=== PATIENT | male | born 1945 | race Caucasian/White ===

== ENCOUNTER 2020-10-06 15:24 | Inpatient (IN) | payer MEDICARE, OTHER ==
[~2020-10-06] VITALS: Ht 172.7 cm; Wt 112.7 kg
[2020-10-06] MEDS ORDERED: GOOD SENSE ASP325 MG PO (15:51)
[2020-10-06] MEDS ORDERED: LIPITOR20 MG PO (15:52)
[2020-10-06] MEDS ORDERED: CELEXA20 MG PO (15:53)
[2020-10-06] MEDS ORDERED: CLOPIDOGREL75 MG PO (15:55)
[2020-10-06] MEDS ORDERED: Imdur SA60 MG PO (15:58)
[2020-10-06] MEDS ORDERED: LASIX20 MG PO (15:59)
[2020-10-06] MEDS ORDERED: LEVOTHYROXINE175 MCG PO (16:00)
[2020-10-06] MEDS ORDERED: SINGULAIR10 M1 PO (16:02)
[2020-10-06] MEDS ORDERED: MULTI-VITAMIN1 EACH PO (16:04)
[2020-10-06] MEDS ORDERED: PROTONIX40 MG PO (16:05)
[2020-10-06] MEDS ORDERED: PROVERA10 MG PO ×2 (16:07→16:23)
[2020-10-06] MEDS ORDERED: ADVAIR 250/501 EA PO (16:14)
[2020-10-06] MEDS ORDERED: GLUCOPHAGE1000 MG PO (16:18)
[2020-10-06] MEDS ORDERED: PRESERVISION A1 EAC3 PO (16:21)
[2020-10-06] MEDS ORDERED: RIVASTIGMINE T4.5 M1 PO (16:25)
[2020-10-06] MEDS ORDERED: DEPAKOTE DR500 MG PO (16:30)
[2020-10-06] MEDS ORDERED: HUMALOG100 UNIT/1 SC ×2 (16:34→16:37)
[2020-10-06] MEDS ORDERED: COMBIVENT RESPIM4 GM INH (16:39)
[2020-10-06] MEDS ORDERED: GLUCAGON EMERGEN1 M1 IM (16:48)
[2020-10-06] MEDS ORDERED: AKWA TEARS 15 M15 ML OPH (16:58)
[2020-10-06] MEDS ORDERED: SENNA8.6 MG PO (16:59)
[2020-10-06] MEDS ORDERED: TYLENOL325 M1 PO (17:36)
[2020-10-06 18:47] VITALS: BP 122/82
[2020-10-06 20:00] VITALS: BP 112/42
[2020-10-07 06:22] LABS: BASO # 0.1 10*3/uL (0.0-0.1); BASO % 0.8 % (0.0-1.0); EOS # 0.2 10*3/uL (0.0-0.4); HEMATOCRIT 39.5 % (42.0-52.0); LYMPH # 2.5 10*3/uL (1.3-4.4); LYMPH % 33.2 % (27.0-41.0); MEAN CELL VOLUME 80.4 fl (80.0-94.0); MEAN CORPUSCULAR HGB 25.1 pg (27.0-31.0); MEAN CORPUSCULAR HGB CONC 31.1 g/dl (33.0-37.0); MEAN PLATELET VOLUME 9.9 fl (9.6-12.3); MONO # 0.7 10*3/uL (0.1-1.0); MONO % 9.9 % (3.0-9.0); NEUT # 3.9 10*3/uL (2.3-7.9); NEUT % 52.7 % (47.0-73.0); PLATELET COUNT AUTOMATED 197 10*3/uL (130-400); RED BLOOD COUNT 4.91 10*6/uL (4.50-5.90); RED CELL DISTRI WIDTH 22.6 % (0-14.5); WHITE BLOOD COUNT 7.4 10*3/uL (4.8-10.8)
[2020-10-07 06:33] LABS: ALBUMIN 2.8 gm/dl (3.1-4.5); BUN 26 mg/dl (7-24); CHLORIDE 111 mmol/L (98-107); POTASSIUM 4.6 mmol/L (3.5-5.1); SODIUM 142 mmol/L (136-145)
[2020-10-07 06:46] LABS: ALKALINE PHOSPHATASE 57 U/L (45-117); CHOLESTEROL 122 mg/dL (<200); LDL CHOLESTEROL 67 mg/dL (9-159); SGOT/AST 8 IU/L (3-35); SGPT/ALT 22 U/L (12-78); TRIGLYCERIDES 61 mg/dl (<150)
[2020-10-07 07:16] VITALS: BP 161/62
[2020-10-07 10:16] LABS: VITAMIN D, 25-HYDROXY 39.1 ng/mL (30-100)
[2020-10-07 20:00] VITALS: BP 107/30
[2020-10-08 07:36] VITALS: BP 141/74
[2020-10-08 20:00] VITALS: BP 107/76
[2020-10-09 07:33] VITALS: BP 114/79
[2020-10-09 12:33] LABS: BILIRUBIN Negative (Negative); BLOOD Negative (Negative); CLARITY Clear (Clear); COLOR Dark Yellow (Yellow); GLUCOSE Negative (Negative); KETONE Trace (Negative); LEUKO ESTERASE 2+ (Negative); NITRITE Negative (Negative); SPECIFIC GRAVITY 1.015 (1.001-1.030)
[2020-10-09 12:41] LABS: WBC 41-50 wbc/hpf (0-5)
[2020-10-09 12:42] LABS: BACTERIA 1+; MUCOUS 1+
[2020-10-09 19:11] VITALS: BP 144/52
[2020-10-10 07:17] VITALS: BP 126/49
[2020-10-10 20:15] VITALS: BP 158/50
[2020-10-11 07:02] VITALS: BP 149/59
[2020-10-11 19:03] VITALS: BP 131/81
[2020-10-12 08:00] VITALS: BP 120/96
[2020-10-12 20:00] VITALS: BP 128/64
[2020-10-13 08:04] VITALS: BP 117/50
[2020-10-13 20:00] VITALS: BP 118/62
[2020-10-14 07:47] VITALS: BP 157/84
[2020-10-14 20:00] VITALS: BP 113/52
[2020-10-15 07:20] VITALS: BP 142/68
[2020-10-15 20:00] VITALS: BP 147/52
[2020-10-16 07:01] VITALS: BP 140/58
[2020-10-16 20:09] VITALS: BP 131/65
[2020-10-17 07:34] VITALS: BP 138/68
[2020-10-17 19:54] VITALS: BP 138/52
[2020-10-18 07:19] VITALS: BP 153/52
[2020-10-18] MEDS ORDERED: NEUDEXT PO (10:14)
[2020-10-18] MEDS ORDERED: TRIHEXYPHENIDYL2 M3 PO (10:14)
[2020-10-18] MEDS ORDERED: MEMANTINE HCL10 MG PO (10:14)
[2020-10-18] MEDS ORDERED: RIVASTIGMINE TAR3 M1 PO (10:14)
[2020-10-18] MEDS ORDERED: MEDROXYPROGESTE10 M1 PO (10:15)
[2020-10-18] MEDS ORDERED: THERA TABLET400 MCG PO (10:15)
== END 2020-10-18 12:06 | DRG 886 ==
LOC: 3N 15:24
PROVIDERS: ADMIT Psychiatry & Neurology Psychiatry; ATTEND Psychiatry & Neurology Psychiatry
DX: F63.9 Impulse disorder, unspecified (principal); I11.0 Hypertensive heart disease with heart failure; E11.65 Type 2 diabetes mellitus with hyperglycemia; I50.32 Chronic diastolic (congestive) heart failure; E44.0 Moderate protein-calorie malnutrition; G31.84 Mild cognitive impairment of uncertain or unknown etiology; H35.30 Unspecified macular degeneration; I25.10 Atherosclerotic heart disease of native coronary artery without angina pectoris; E78.5 Hyperlipidemia, unspecified; K21.9 Gastro-esophageal reflux disease without esophagitis; J44.9 Chronic obstructive pulmonary disease, unspecified; D50.9 Iron deficiency anemia, unspecified; J45.20 Mild intermittent asthma, uncomplicated; F32.9 Major depressive disorder, single episode, unspecified; F41.9 Anxiety disorder, unspecified; F17.210 Nicotine dependence, cigarettes, uncomplicated; Z71.6 Tobacco abuse counseling; Z86.73 Personal history of transient ischemic attack (TIA), and cerebral infarction without residual deficits; Z82.49 Family history of ischemic heart disease and other diseases of the circulatory system; Z95.5 Presence of coronary angioplasty implant and graft; Z79.82 Long term (current) use of aspirin; Z79.899 Other long term (current) drug therapy; Z68.37 Body mass index [BMI] 37.0-37.9, adult